=== PATIENT | female | born 1995 | race Two or more races ===

== ENCOUNTER 2019-11-14 12:57 | Emergency (ER) | payer BC, SELFPAY ==
[2019-11-14] MEDS ORDERED: Lidocaine 1% w/Epinephrine 1:100K 20 ML VIAL ONE (13:52)
[2019-11-14] MEDS ORDERED: Bupivacaine 0.5% 10 ML VIAL ONE (13:54)
[2019-11-14] MEDS ORDERED: Bupivacaine 0.25% 10 ML VIAL ONE (13:54)
== END 2019-11-14 15:10 | disposition home or self-care (01) ==
LOC: ERS 12:57
DX: L02.211 Cutaneous abscess of abdominal wall (principal); E11.9 Type 2 diabetes mellitus without complications; F39 Unspecified mood [affective] disorder; F17.210 Nicotine dependence, cigarettes, uncomplicated
CPT/HCPCS: 10060; J3490; S0020

== ENCOUNTER 2021-11-06 20:41 | Emergency (ER) | payer BC, SELFPAY ==
[2021-11-06] MEDS ORDERED: Lidocaine 1% (PF) 30 ML VIAL ONE (23:09)
[2021-11-07] MEDS ORDERED: Bacitracin 1 PK ONE (00:09)
== END 2021-11-07 00:17 | disposition home or self-care (01) ==
LOC: ERS 20:41
DX: S01.511A Laceration without foreign body of lip, initial encounter (principal); E11.9 Type 2 diabetes mellitus without complications; F17.290 Nicotine dependence, other tobacco product, uncomplicated; W22.8XXA Striking against or struck by other objects, initial encounter
CPT/HCPCS: 12001; J2001

== ENCOUNTER 2022-02-24 07:15 | Emergency (ER) | payer SELFPAY ==
[2022-02-24] MEDS ORDERED: Ketorolac Tromethamine 30 MG/ML VIAL ONE (09:52)
== END 2022-02-24 10:00 | disposition home or self-care (01) ==
LOC: ERS 07:15
DX: S72.432A Displaced fracture of medial condyle of left femur, initial encounter for closed fracture (principal); I10 Essential (primary) hypertension; E11.9 Type 2 diabetes mellitus without complications; F17.290 Nicotine dependence, other tobacco product, uncomplicated; W50.1XXA Accidental kick by another person, initial encounter; Y93.72 Activity, wrestling
CPT/HCPCS: 96372; J1885

== ENCOUNTER 2023-03-06 08:23 | Emergency (ER) | payer SELFPAY ==
[2023-03-06] MEDS ORDERED: Ketorolac Tromethamine 30 MG/ML VIAL ONE (08:53)
== END 2023-03-06 09:10 | disposition home or self-care (01) ==
LOC: ERS 08:23
DX: K03.81 Cracked tooth (principal); K08.89 Other specified disorders of teeth and supporting structures; E11.9 Type 2 diabetes mellitus without complications; F17.210 Nicotine dependence, cigarettes, uncomplicated; Z79.4 Long term (current) use of insulin
CPT/HCPCS: 96372; 99282; J1885